=== PATIENT | male | born 1990 | race African-American/Black ===

== ENCOUNTER 2018-03-24 16:25 | Emergency (ER) | payer SELFPAY ==
[~2018-03-24] VITALS: Ht 177.8 cm; Wt 73.0 kg
[2018-03-24 21:12] VITALS: BP 115/76
== END 2018-03-24 21:15 | disposition home or self-care (01) ==
LOC: ER 16:25
DX: K08.89 Other specified disorders of teeth and supporting structures (principal); Z91.09 Other allergy status, other than to drugs and biological substances
CPT/HCPCS: 99283; Z7610